=== PATIENT | male | born 1960 | race Caucasian/White ===

== ENCOUNTER 2017-02-10 18:13 | Inpatient (IN) | payer BC ==
--- NOTE | ~2017-02-10 | HP ---
History And Physical [facility] [id number] [place]. [address] NAME: TRISTA STARKS : 56 STATUS : ADM Vicki PAT#: [id number] AGE: 56 ADM/REG DATE : 02/10/17 MR#: [id number] REPORT SERV DATE: 02/11/17 DICTATED BY: VARUN HU DATE: 02/11/17 REPORT STATUS : Draft TRANSCRIBED BY: MODL DATE: 02/11/17 DATE OF ADMISSION: 02/10/2017 ADMISSION DIAGNOSIS: Cardiomyopathy. HISTORY OF PRESENT ILLNESS: Mr. Starks is a very pleasant 56-year-old male who presented to the ED yesterday for evaluation of progressive shortness of breath times four to five days. He also had been experiencing a discomfort in his chest which he describes as a pressure with an associated deep sense of dyspnea. This persisted throughout the day, and at the advice of his sibling, he came to the ER where his initial workup was not suggestive of acute coronary syndrome with normal troponins, but he did have an elevated D-dimer prompting a CTA of the chest. This showed no PE, but did demonstrate an atherosclerotic CAD, particularly in the LAD distribution. His BNP was mildly elevated. He was admitted to the [facility] for further evaluation, and I am seeing him this evening for the first time. He has had no chest discomfort throughout his stay here. He did have an echocardiogram which demonstrated severe LV systolic dysfunction with global hypokinesis, EF estimated at 15%. There is no significant valvular heart disease. There was moderate diastolic dysfunction. He denies any recent sick contacts, specifically any flu-like symptoms, diarrhea or constipation, or abdominal discomfort. He has no history of thyroid disease. He denies any observable limitation or decline in his ability physical activity in the weeks prior to his admission. PAST MEDICAL HISTORY: 1. Ongoing and longstanding tobacco abuse approximately 40- to 50-pack years of one pack per day. No history of coronary heart disease, valvular heart disease, or rhythm disorder or peripheral artery disease. HOME MEDICATIONS: Include naproxen. ALLERGIES: TO PENICILLIN. UNKNOWN REACTION. ABLE TO TOLERATE AMOXICILLIN. SULFA UNKNOWN REACTION, DOCUMENTED SINCE HE WAS A CHILD. FAMILY HISTORY: The patient's father had a stroke and of an CT in his 80s. The patient has an older sister who has factor V Leiden with clinical manifestations of DVT and PE. SURGICAL HISTORY: Basal cell carcinoma resection in 2016, hernia repair in 2016. REVIEW OF SYSTEMS: Per HPI. Otherwise, negative. PHYSICAL EXAMINATION: VITALS: Temperature 98.6, pulse 75, blood pressure 140/94, respiratory rate 20. GENERAL: Appears comfortable. History And Physical [address] [place]. [address] NAME: TRISTA STARKS : 56 STATUS : ADM Vicki PAT#: [id number] AGE: 56 ADM/REG DATE : 02/10/17 MR#: [id number] REPORT SERV DATE: 02/11/17 DICTATED BY: VARUN HU DATE: 02/11/17 REPORT STATUS : Draft TRANSCRIBED BY: JESSE DATE: 02/11/17 HEENT: Sclerae anicteric; mucous membranes moist. NECK: No JVD. Thyroid not tender or enlarged CARDIOVASCULAR: Regular rhythm with normal S1/S2. No murmurs, rubs, or gallop. PULMONARY: Lung soto CTA. ABDOMEN: Soft, nontender, no masses EXTREMITIES: Warm, no edema. NEUROLOGIC: Grossly without deficits LABORATORY DATA: Reviewed, notable for creatinine 1.14. Hemoglobin 16.8, hematocrit 48.4, platelets 148. INR 1.2. LDL 67, HDL 33, triglycerides 259. BNP 241. D-dimer 0.76. Rapid flu test negative. EKG demonstrates sinus rhythm, rate of 93, LVH with associated repolarization abnormalities. Poor R-wave progression across precordial leads. No pathologic Q-waves. Echocardiogram demonstrates LV systolic dysfunction. EF estimated 15%. Moderate diastolic dysfunction. Global hypokinesis. Normal RV size/function. Mild MR. IMPRESSION/RECOMMENDATIONS: 1. Dilated cardiomyopathy. 2. Heart failure, systolic/diastolic, acute on chronic. 3. History of tobacco abuse. 4. Coronary artery disease, diagnosed by CTA. The patient has cardiomyopathy of unclear etiology, but does have risk factors for coronary artery disease and demonstration of coronary artery disease noninvasively by recent chest CTA. We need to evaluate the possibility if this cardiomyopathy is related to obstructive coronary artery disease with cardiac catheterization. I have recommended we perform this tomorrow, and I have discussed the risks, benefits, and alternatives including major minor complications with him. He is agreeable to proceed. We will also check a thyroid panel and a hemoglobin A1c. I will start him on low-dose Coreg initially with plan for an MONICA inhibitor thereafter if his blood pressure tolerates. Additional recommendations forthcoming after initial clinical course. REYNALDO/JESSE Varun Hu MD / [id number] CC: Hill Kelly M.D.
--- NOTE | ~2017-02-10 | DS ---
Discharge Summary [facility] [address] [place]. [address] NAME: TRISTA ANTONY : 56 STATUS : DIS IN PAT#: [id number] AGE: 56 ADM/REG DATE : 02/10/17 MR#: [id number] REPORT SERV DATE: 02/20/17 DICTATED BY: VARUN HU DATE: 02/20/17 REPORT STATUS : Draft TRANSCRIBED BY: JESSE DATE: 02/20/17 Data Collection from hospitalization DISCHARGE DIAGNOSES: 1. Nonischemic cardiomyopathy. 2. Heart failure - systolic - acute/chronic. 3. Tobacco use. CONSULTATIONS: None. PROCEDURES PERFORMED: 1. Cardiac catheterization on 02/12/2017. 2. CTA of the chest on 02/10/2017. MEDICATIONS: Aspirin 81 mg daily, Lipitor 10 mg at bedtime, Coreg 3.125 mg twice a day, Lasix 20 mg daily, and Zestril 5 mg daily. He was instructed not to continue naproxen/Aleve. CONDITION AT DISCHARGE: Stable. DISPOSITION: The patient was discharged home on a low-sodium, low-cholesterol, cardiac diet with activities as instructed. He would follow up with me on 03/19/2017. HOSPITAL COURSE: This is a 56-year-old man who presented to the emergency department for evaluation of progressive shortness of breath for four or five days. He had also experienced discomfort in the chest which he described as pressure with an associated deep sense of dyspnea, this persisted throughout the day, and at the advice of his sibling, he came to the emergency room and initial workup was not suggestive of acute coronary syndrome with normal troponins. He did have an elevated D-dimer prompting a CTA of the chest, which showed no pulmonary embolus, it did demonstrate atherosclerotic coronary artery disease, particularly in the LAD distribution. BNP was mildly elevated. He was admitted to the hospital at this time for further evaluation and treatment. Upon admission, echocardiogram demonstrated severe LV systolic dysfunction with global hypokinesis and ejection fraction estimated at 15%. There was no significant valvular heart disease. There was moderate diastolic dysfunction. Creatinine level was 1.14. Rapid flu test was negative. His cardiomyopathy was of unclear etiology. It was recommended that he undergo cardiac catheterization. Thyroid panel was going to be checked as well as hemoglobin A1c. He was started on low-dose Coreg with plans for an MONICA inhibitor thereafter if his blood pressure would tolerate. The following day, he was taken to the cardiac [facility] where he underwent the above-mentioned procedure by Dr. Aaron Garcia. He tolerated this well, and there were no complications. Discharge planning was performed. There was no evidence of flow-limiting coronary artery disease. He has elevated left ventricular end- diastolic filling pressure of 23 mmHg. He has severely depressed left ventricular systolic function with ejection fraction 10% with severe global hypokinesis in this single plane ventriculogram. Findings were consistent with nonischemic cardiomyopathy. On 02/12/2017, he was in no acute distress. His lungs were clear. He had no edema. was going to be added as an outpatient. We discussed LifeVest with the patient and he was agreeable. Discharge Summary [address] [address] NAME: TRISTA ANTONY : 56 STATUS : DIS IN PAT#: [id number] AGE: 56 ADM/REG DATE : 02/10/17 MR#: [id number] REPORT SERV DATE: 02/20/17 DICTATED BY: VARUN HU DATE: 02/20/17 REPORT STATUS : Draft TRANSCRIBED BY: MODL DATE: 02/20/17 Discharge instructions were given. Due to his improved and stable condition, he was discharged home with the above-stated instructions. Information collected by: Shyanne Pat I submit the above information as my discharge summary. TG/JESSE Varun Hu MD / [id number] CC: Hill Kelly M.D.
[~2017-02-10 18:13] MED LIST: ALEVE220 MG PO; CIP5 PO; PERCOCET1 TA4 PO; PR25 PO
[2017-02-10 19:24] LABS: BASOPHILS 1.1 %; BASOPHILS ABSOLUTE 0.08 10/3/uL (0.0-0.16); EOSINOPHILS 2.9 %; EOSINOPHILS ABSOLUTE 0.22 10/3/uL (0.0-0.53); HEMATOCRIT 47.6 % (40.0-51.0); HEMOGLOBIN 17.2 g/dL (13.6-17.8); IMMATURE GRANULOCYTES 0.1 %; IMMATURE GRANULOCYTES ABSOLUTE 0.01 10/3/uL (0.0-0.11); LYMPHOCYTES ABSOLUTE 1.96 10/3/uL (0.67-4.30); MEAN CORPUS HGB CONC 36.1 g/dL (32.0-36.0); MEAN CORPUSCULAR HEMOGLOB 33.3 pg (26.0-34.0); MEAN CORPUSCULAR VOLUME 92.1 fL (80-100); MEAN PLATELET VOLUME 12.8 fL (9.2-13.0); MONOCYTES 6.2 %; MONOCYTES ABSOLUTE 0.47 10/3/uL (0.21-1.20); NEUTROPHILS 63.7 %; NEUTROPHILS ABSOLUTE 4.79 10/3/uL (2.02-8.40); RED CELL COUNT 5.17 10/6/uL (4.7-6.1); WHITE BLOOD CELLS 7.5 10/3/uL (4.5-10.5)
[2017-02-10 19:26] LABS: PLATELET COUNT 138 10/3/uL (150-400)
[2017-02-10 19:27] LABS: MANUAL DIFF NO %
[2017-02-10] MEDS ORDERED: ALEVE220 MG PO (19:28)
[2017-02-10 19:33] LABS: INTERNATIONAL NORMAL RATI 1.2 UNITS (-); PARTIAL THROMBO TIME 29.9 SEC (22.5-37.2)
[2017-02-10 19:36] LABS: D-DIMER QUANTITATIVE 0.76 ug/mLFEU (< 0.50)
[2017-02-10 19:40] LABS: CALCIUM, SERUM 8.6 MG/DL (8.5-10.4); CHEST PAIN PROFILE TAT 0 Hrs 20 Mins; CHLORIDE, SERUM 110 MMOL/L (96-112); CO2 (CARBON DIOXIDE) 24 MMOL/L (24-34); CREATININE 1.14 MG/DL (0.70-1.30); GFR AFRICAN AMERICAN 82 ML/MIN (>=60); GFR NON AFRICAN AMERICAN 70 ML/MIN (>=60); POTASSIUM, SERUM 3.8 MMOL/L (3.5-5.3); SODIUM, SERUM 145 MMOL/L (135-148); TROPONIN I <0.02 NG/ML (<0.05)
[2017-02-10 19:44] LABS: BUN (BLOOD UREA NITROGEN) 17 MG/DL (6-23); GLUCOSE, SERUM 142 MG/DL (60-99)
[2017-02-10 21:10] LABS: INFLUENZA A SCREEN NEGATIVE (NEGATIVE); INFLUENZA B SCREEN NEGATIVE (NEGATIVE)
[2017-02-11 02:04] LABS: CHOL/HDL RATIO(NOT ORDER) 4.6 (0-5); CHOLESTEROL 151 MG/DL (< 200); HDL CHOLESTEROL 33 MG/DL (> 39); LDL CHOLESTEROL 67 MG/DL (< 130); NON-HDL CHOLESTEROL 118 MG/DL (< 160); SGPT(ALT) 19 U/L (5-65); TRIGLYCERIDE 259 MG/DL (< 150); TROPONIN I <0.02 NG/ML (<0.05)
[2017-02-11 06:22] LABS: BASOPHILS 0.6 %; BASOPHILS ABSOLUTE 0.05 10/3/uL (0.0-0.16); EOSINOPHILS 4.6 %; EOSINOPHILS ABSOLUTE 0.36 10/3/uL (0.0-0.53); HEMATOCRIT 48.4 % (40.0-51.0); HEMOGLOBIN 16.8 g/dL (13.6-17.8); IMMATURE GRANULOCYTES 0.1 %; IMMATURE GRANULOCYTES ABSOLUTE 0.01 10/3/uL (0.0-0.11); LYMPHOCYTES ABSOLUTE 2.44 10/3/uL (0.67-4.30); MEAN CORPUS HGB CONC 34.7 g/dL (32.0-36.0); MEAN CORPUSCULAR HEMOGLOB 31.8 pg (26.0-34.0); MEAN CORPUSCULAR VOLUME 91.7 fL (80-100); MEAN PLATELET VOLUME 13.2 fL (9.2-13.0); MONOCYTES 8.8 %; MONOCYTES ABSOLUTE 0.69 10/3/uL (0.21-1.20); NEUTROPHILS 54.9 %; NEUTROPHILS ABSOLUTE 4.31 10/3/uL (2.02-8.40); PLATELET COUNT 148 10/3/uL (150-400); RBC DISTRIBUTION WIDTH 13.3 % (12.0-16.0); RED CELL COUNT 5.28 10/6/uL (4.7-6.1); WHITE BLOOD CELLS 7.9 10/3/uL (4.5-10.5)
[2017-02-11 06:23] LABS: MANUAL DIFF NO %
[2017-02-12 04:56] LABS: BASOPHILS 1.2 %; BASOPHILS ABSOLUTE 0.09 10/3/uL (0.0-0.16); EOSINOPHILS 5.1 %; EOSINOPHILS ABSOLUTE 0.37 10/3/uL (0.0-0.53); HEMATOCRIT 48.5 % (40.0-51.0); HEMOGLOBIN 16.9 g/dL (13.6-17.8); LYMPHOCYTES 35.6 %; LYMPHOCYTES ABSOLUTE 2.57 10/3/uL (0.67-4.30); MANUAL DIFF NO %; MEAN CORPUS HGB CONC 34.8 g/dL (32.0-36.0); MEAN CORPUSCULAR HEMOGLOB 32.4 pg (26.0-34.0); MEAN CORPUSCULAR VOLUME 93.1 fL (80-100); MEAN PLATELET VOLUME 12.9 fL (9.2-13.0); MONOCYTES 10.1 %; MONOCYTES ABSOLUTE 0.73 10/3/uL (0.21-1.20); NEUTROPHILS ABSOLUTE 3.45 10/3/uL (2.02-8.40); PLATELET COUNT 147 10/3/uL (150-400); RBC DISTRIBUTION WIDTH 13.1 % (12.0-16.0); RED CELL COUNT 5.21 10/6/uL (4.7-6.1); WHITE BLOOD CELLS 7.2 10/3/uL (4.5-10.5)
[2017-02-12 05:21] LABS: BUN (BLOOD UREA NITROGEN) 22 MG/DL (6-23); CALCIUM, SERUM 8.9 MG/DL (8.5-10.4); CHLORIDE, SERUM 109 MMOL/L (96-112); CHOLESTEROL 160 MG/DL (< 200); CO2 (CARBON DIOXIDE) 24 MMOL/L (24-34); GFR AFRICAN AMERICAN 85 ML/MIN (>=60); GFR NON AFRICAN AMERICAN 74 ML/MIN (>=60); GLUCOSE, SERUM 104 MG/DL (60-99); HDL CHOLESTEROL 32 MG/DL (> 39); LDL CHOLESTEROL 62 MG/DL (< 130); NON-HDL CHOLESTEROL 128 MG/DL (< 160); POTASSIUM, SERUM 3.8 MMOL/L (3.5-5.3); SODIUM, SERUM 144 MMOL/L (135-148); TRIGLYCERIDE 333 MG/DL (< 150)
[2017-02-13 04:06] LABS: BUN (BLOOD UREA NITROGEN) 21 MG/DL (6-23); CALCIUM, SERUM 8.9 MG/DL (8.5-10.4); CHLORIDE, SERUM 109 MMOL/L (96-112); CO2 (CARBON DIOXIDE) 25 MMOL/L (24-34); CREATININE 1.14 MG/DL (0.70-1.30); GFR AFRICAN AMERICAN 82 ML/MIN (>=60); GFR NON AFRICAN AMERICAN 70 ML/MIN (>=60); GLUCOSE, SERUM 92 MG/DL (60-99); SODIUM, SERUM 143 MMOL/L (135-148)
[2017-02-13] MEDS ORDERED: COREG12 PO (10:32)
[2017-02-13] MEDS ORDERED: ZESTRIL5 MG PO (10:33)
[2017-02-13] MEDS ORDERED: L20 PO (10:33)
[2017-02-13] MEDS ORDERED: LIPITOR10 PO (10:34)
[2017-02-13] MEDS ORDERED: ASAB PO (10:35)
[2017-07-09] MEDS ORDERED: COZ25 PO (13:37)
[2017-07-09] MEDS ORDERED: SPIRO25 PO (13:37)
[2017-07-10] MEDS ORDERED: ULTRAM50 PO (17:15)
== END 2017-02-13 14:02 | disposition home or self-care (01) | DRG 287 ==
LOC: ER 18:13 → CDU1 21:14
PROVIDERS: Emergency Medicine; Internal Medicine Cardiovascular Disease; Internal Medicine Clinical Cardiac Electrophysiology; Nurse Practitioner
PROC: 4A023N7 Measurement of Cardiac Sampling and Pressure, Left Heart, Percutaneous Approach (ICD-10-PCS; principal; 2017-02-12)
PROC: B2111ZZ Fluoroscopy of Multiple Coronary Arteries using Low Osmolar Contrast (ICD-10-PCS; 2017-02-12)
PROC: B2151ZZ Fluoroscopy of Left Heart using Low Osmolar Contrast (ICD-10-PCS; 2017-02-12)
DX: I50.43 Acute on chronic combined systolic (congestive) and diastolic (congestive) heart failure (principal); I42.0 Dilated cardiomyopathy; I25.10 Atherosclerotic heart disease of native coronary artery without angina pectoris; I44.7 Left bundle-branch block, unspecified; F17.210 Nicotine dependence, cigarettes, uncomplicated; Z88.0 Allergy status to penicillin; Z82.3 Family history of stroke; Z83.2 Family history of diseases of the blood and blood-forming organs and certain disorders involving the immune mechanism; Z85.828 Personal history of other malignant neoplasm of skin
CPT/HCPCS: 71010; 71275; 80048; 80061; 83036; 83735; 83880; 84443; 84460; 84484; 85025; 85379; 85610; 85730; 87040; 87389; 87804; 93005; 93458; 99152; 99153; 99285; A9270-GY; C1769; C1887; C1894; C8929; J2250; J3010; Q9957; Q9967

== ENCOUNTER 2017-03-02 09:07 | Emergency (ER) | payer BC ==
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
[~2017-03-02 09:07] MED LIST changes: +ASAB PO; +COREG12 PO; +L20 PO; +LIPITOR10 PO; +ZESTRIL5 MG PO
[2017-03-02 09:41] LABS: BASOPHILS 0.5 %; BASOPHILS ABSOLUTE 0.05 10/3/uL (0.0-0.16); EOSINOPHILS 1.1 %; HEMATOCRIT 50.2 % (40.0-51.0); HEMOGLOBIN 17.6 g/dL (13.6-17.8); IMMATURE GRANULOCYTES 0.1 %; IMMATURE GRANULOCYTES ABSOLUTE 0.01 10/3/uL (0.0-0.11); LYMPHOCYTES 20.6 %; LYMPHOCYTES ABSOLUTE 1.89 10/3/uL (0.67-4.30); MEAN CORPUS HGB CONC 35.1 g/dL (32.0-36.0); MEAN CORPUSCULAR HEMOGLOB 32.7 pg (26.0-34.0); MEAN CORPUSCULAR VOLUME 93.3 fL (80-100); MEAN PLATELET VOLUME 12.5 fL (9.2-13.0); MONOCYTES 5.3 %; MONOCYTES ABSOLUTE 0.49 10/3/uL (0.21-1.20); NEUTROPHILS 72.4 %; NEUTROPHILS ABSOLUTE 6.63 10/3/uL (2.02-8.40); PLATELET COUNT 151 10/3/uL (150-400); RBC DISTRIBUTION WIDTH 12.6 % (12.0-16.0); RED CELL COUNT 5.38 10/6/uL (4.7-6.1); WHITE BLOOD CELLS 9.2 10/3/uL (4.5-10.5)
[2017-03-02 09:42] LABS: MANUAL DIFF NO %
[2017-03-02 09:53] LABS: CALCIUM, SERUM 9.2 MG/DL (8.5-10.4); CHLORIDE, SERUM 108 MMOL/L (96-112); CO2 (CARBON DIOXIDE) 26 MMOL/L (24-34); CREATININE 1.46 MG/DL (0.70-1.30); GFR AFRICAN AMERICAN 61 ML/MIN (>=60); GFR NON AFRICAN AMERICAN 52 ML/MIN (>=60); POTASSIUM, SERUM 4.5 MMOL/L (3.5-5.3); SODIUM, SERUM 143 MMOL/L (135-148)
[2017-03-02 09:54] LABS: BUN (BLOOD UREA NITROGEN) 26 MG/DL (6-23); GLUCOSE, SERUM 144 MG/DL (60-99)
[2017-03-02 11:25] LABS: ASCORBIC ACID (UR NOT ORDER) NEG (NEG); BILIRUBIN, URINE NEGATIVE (NEG); ER URINALYSIS TAT 0 Hrs 12 Mins; KETONE, URINE NEGATIVE (NEG); LEUKOCYTE ESTERASE(NOT OR NEG (NEG); NITRITE (URINE) NEG (NEG); WBC (NOT ORDERED) (RFLEX) < 1 (0-5)
[2017-07-09] MEDS ORDERED: COZ25 PO (13:37)
[2017-07-09] MEDS ORDERED: SPIRO25 PO (13:37)
[2017-07-10] MEDS ORDERED: ULTRAM50 PO (17:15)
== END 2017-03-02 13:39 | disposition home or self-care (01) ==
LOC: ER 09:07
PROVIDERS: Emergency Medicine
DX: N13.2 Hydronephrosis with renal and ureteral calculous obstruction (principal); N17.9 Acute kidney failure, unspecified; I50.9 Heart failure, unspecified; I42.9 Cardiomyopathy, unspecified; F17.200 Nicotine dependence, unspecified, uncomplicated; Z87.442 Personal history of urinary calculi; Z88.0 Allergy status to penicillin; Z88.2 Allergy status to sulfonamides; Z79.82 Long term (current) use of aspirin; Z79.899 Other long term (current) drug therapy
CPT/HCPCS: 74000; 74176; 80048; 81001; 85025; 96374; 96375; 96376; 99284; J1170; J2405

== ENCOUNTER 2017-03-04 11:55 | Inpatient (IN) | payer BC ==
--- NOTE | ~2017-03-04 | OP ---
Record Of Operation [facility] [address] [place]. [address] NAME: TRISTA STARKS : 56 STATUS : ADM IN [facility]#: [id number] AGE: 56 ADM/REG DATE : 03/04/17 MR#: [id number] REPORT SERV DATE: 03/05/17 DICTATED BY: TRAVIS SCHULER JR. DATE: 03/04/17 REPORT STATUS : Draft TRANSCRIBED BY: MODEamon DATE: 03/04/17 DATE OF PROCEDURE: SURGEON: Travis Schuler M.D. PREOPERATIVE DIAGNOSIS: Left ureteral and renal stones. POSTOPERATIVE DIAGNOSIS: Left ureteral and renal stones. PROCEDURE PERFORMED: Cystoscopy, left retrograde pyelogram, left ureteroscopy with dilation of left ureteral orifice, laser ablation of left ureteral and renal stones with removal of fragments, double-J stent placement. COMPLICATIONS: None. CONSULTATIONS: None. ANESTHESIA: General with endotracheal tube. SPECIMENS: Ureteral stone and renal stone fragments. DRAINS: 6 x 26 cm double-J stent. ESTIMATED BLOOD LOSS: None. INDICATION: Mr. Starks is a 56-year-old gentleman, who presented with an obstructing distal ureteral stone approximately 5 mm in size with several other stones, two proximally in his left kidney, one approximately 6 mm and the other approximately 3 mm. He comes today for management of the stones. PROCEDURE IN DETAIL: After the patient was identified and proper informed consent was obtained, he was taken to the operating room. General anesthesia was performed without complication using an endotracheal tube. He was then prepped and draped in a normal sterile fashion in the lithotomy position. Cystoscopic examination of the urethra and bladder reveals a normal penile and bulbous urethra. He had a trilobar hypertrophy prostate but otherwise normal bladder mucosa that was normal without diverticula, stones, or tumors. There were no trabeculation. The left ureteral orifice was identified and retrograde pyelogram was performed which revealed the stone and 5 mm filling defect in the distal ureter just above the ureteral vesicle junction. The guidewire was advanced through the open-ended catheter up the ureter to the renal pelvis and a rigid ureteroscope was advanced and the distal ureter stone was visualized and fragmented using a 200 micron Holmium laser fiber. The fragments were removed using a Nitinol basket. I then advanced a flexible ureteroscope up to the kidney. I identified the two stones noted on CT, one 6 mm in the lateral calyx of the lower pole. This was fragmented using the 200 micron Holmium laser fiber on the dusting setting. The stone was fragmented into very small pieces. I then identified the 3 mm stone in the anterior lower pole calyx. This was removed using a NGage Record Of Operation [address] [address] NAME: TRISTA STARKS : 56 STATUS : ADM IN PAT#: [id number] AGE: 56 ADM/REG DATE : 03/04/17 MR#: [id number] REPORT SERV DATE: 03/05/17 DICTATED BY: TRAVIS SCHULER JR. DATE: 03/04/17 REPORT STATUS : Draft TRANSCRIBED BY: JESSE DATE: 03/04/17 basket. I then deployed a 6 x 26 cm double-J stent with a nice curl in both the bladder and the kidney. The bladder was drained. The patient was awakened in the operating room, transferred to the Postanesthesia Care in stable condition. We will remove his stent next week in the office. He will be admitted overnight to the MICU for observation regarding his cardiomyopathy. Please see my H and P for details. MIA/JESSE Travis Schuler Jr., M.D. / [id number] CC: Travis Schuler Jr., M.D.
[2017-03-04 11:21] LABS: BASOPHILS 0.1 %; BASOPHILS ABSOLUTE 0.02 10/3/uL (0.0-0.16); EOSINOPHILS 0.1 %; EOSINOPHILS ABSOLUTE 0.01 10/3/uL (0.0-0.53); ER CBC TAT 0 Hrs 08 Mins; HEMOGLOBIN 16.2 g/dL (13.6-17.8); IMMATURE GRANULOCYTES 0.1 %; IMMATURE GRANULOCYTES ABSOLUTE 0.02 10/3/uL (0.0-0.11); LYMPHOCYTES 10.8 %; LYMPHOCYTES ABSOLUTE 1.48 10/3/uL (0.67-4.30); MEAN CORPUS HGB CONC 36.8 g/dL (32.0-36.0); MEAN CORPUSCULAR HEMOGLOB 32.8 pg (26.0-34.0); MEAN CORPUSCULAR VOLUME 89.1 fL (80-100); MEAN PLATELET VOLUME 12.7 fL (9.2-13.0); MONOCYTES ABSOLUTE 1.65 10/3/uL (0.21-1.20); NEUTROPHILS 76.9 %; NEUTROPHILS ABSOLUTE 10.54 10/3/uL (2.02-8.40); PLATELET COUNT 135 10/3/uL (150-400); RBC DISTRIBUTION WIDTH 12.7 % (12.0-16.0); RED CELL COUNT 4.94 10/6/uL (4.7-6.1); WHITE BLOOD CELLS 13.7 10/3/uL (4.5-10.5)
[2017-03-04 11:22] LABS: MANUAL DIFF NO %
[2017-03-04 11:29] LABS: INTERNATIONAL NORMAL RATI 1.2 UNITS (-); PARTIAL THROMBO TIME 29.2 SEC (22.5-37.2); PROTIME (NOT ORD) 15.1 SEC (12.0-14.5)
[2017-03-04 11:38] LABS: PLATELET ESTIMATE SLT DEC (ADEQUATE); RBC MORPHOLOGY NORM (NORMAL)
[2017-03-04 11:44] LABS: CALCIUM, SERUM 9.2 MG/DL (8.5-10.4); CHLORIDE, SERUM 102 MMOL/L (96-112); CO2 (CARBON DIOXIDE) 23 MMOL/L (24-34); CREATININE 1.78 MG/DL (0.70-1.30); GFR AFRICAN AMERICAN 48 ML/MIN (>=60); GFR NON AFRICAN AMERICAN 41 ML/MIN (>=60); POTASSIUM, SERUM 3.8 MMOL/L (3.5-5.3); TROPONIN I 0.02 NG/ML (<0.05)
[2017-03-04 11:45] LABS: BUN (BLOOD UREA NITROGEN) 30 MG/DL (6-23); GLUCOSE, SERUM 92 MG/DL (60-99); SODIUM, SERUM 136 MMOL/L (135-148)
[2017-03-04 11:46] LABS: CHEST PAIN PROFILE TAT 0 Hrs 31 Mins
[2017-03-05] MEDS ORDERED: DIL2TAB PO (09:52)
[2017-03-11 13:06] LABS: STONE COMPOSITION TWO DNR (())
[2017-07-09] MEDS ORDERED: COZ25 PO (13:37)
[2017-07-09] MEDS ORDERED: SPIRO25 PO (13:37)
[2017-07-10] MEDS ORDERED: ULTRAM50 PO (17:15)
== END 2017-03-05 10:49 | disposition home or self-care (01) | DRG 660 ==
LOC: ER 11:55 → MIC 21:31
PROVIDERS: Physician Assistant; Urology
PROC: 0T578ZZ Destruction of Left Ureter, Via Natural or Artificial Opening Endoscopic (ICD-10-PCS; 2017-03-04)
PROC: 0T518ZZ Destruction of Left Kidney, Via Natural or Artificial Opening Endoscopic (ICD-10-PCS; 2017-03-04)
PROC: BT1F1ZZ Fluoroscopy of Left Kidney, Ureter and Bladder using Low Osmolar Contrast (ICD-10-PCS; 2017-03-04)
PROC: 0T778DZ Dilation of Left Ureter with Intraluminal Device, Via Natural or Artificial Opening Endoscopic (ICD-10-PCS; principal; 2017-03-04 15:00)
DX: N20.2 Calculus of kidney with calculus of ureter (principal); I42.0 Dilated cardiomyopathy; N17.9 Acute kidney failure, unspecified; I50.9 Heart failure, unspecified; Z88.0 Allergy status to penicillin; Z88.1 Allergy status to other antibiotic agents; Z79.82 Long term (current) use of aspirin; Z79.899 Other long term (current) drug therapy; F17.210 Nicotine dependence, cigarettes, uncomplicated; G47.33 Obstructive sleep apnea (adult) (pediatric); Z87.442 Personal history of urinary calculi
CPT/HCPCS: 71010; 74000; 74176; 74420; 80048; 81001; 82365; 83735; 83880; 84484; 85025; 85610; 85730; 87641; 93005; 96374; 96375; 96376; 99284; 99285; A9270-GY; C1758; C1769; C1894; C2617; J1170; J2250; J2270; J2370; J2405; J2710; J3010; Q9967